=== PATIENT | female | born 1985 | race Caucasian/White ===

== ENCOUNTER 2020-03-22 10:17 | Outpatient (CLI) | payer OTHER, SELFPAY ==
--- NOTE | 2020-04-04 13:50 | WPDPFTINT ---
PFT Interpretation PFT Interpretation: DOS: 03/22/2020 REQUESTING: DESTINY Vuong REASON FOR TESTING: history of heavy smoking PULMONARY FUNCTION TESTS Results are reliable. Spirometry: FEV1 is 114%, FVC 115%, and the FEV/FVC ratio is 78%, all are normal. Normal QRH69-64%. No bronchodilator was given. Lung volumes: TLC 99%, normal. RV is 56%, unremarkable, RV/TLC ratio is 19%, lower than expected. Airway resistance is 141%, increased. Diffusion: DLCO is 63%, mildly decreased. Flow volume loop: Unremarkable. IMPRESSION: Normal spirometry, normal lung volumes with mild increase in airway resistance and mild decrease in diffusion. The decrease in diffusion is the main abnormality. Isolated decrease in DLCO can be seen in early interstitial lung disease, anemia, smoking, collagen vascular disease with pulmonary vascular involvement and chronic thromboembolic disease. Clinical correlation is recommended. Tahira Saez MD
== END 2020-03-22 10:18 | disposition home or self-care (01) ==
LOC: ANHPFT 10:18
PROVIDERS: PCP Physician Assistant; Visit Provider Physician Assistant
DX: Z87.891 Personal history of nicotine dependence (principal)
CPT/HCPCS: 94375; 94726; 94729

== ENCOUNTER 2022-06-01 06:51 | Emergency (ER) | payer OTHER, MEDICAID, SELFPAY ==
[2022-06-01] VITALS (15 sets, daily range): BP systolic 127–140; BP diastolic 72–92; PULSE 57–88; RESP 11–23; TEMP 36.4–37; O2SAT 94–100
--- NOTE | ~2022-06-01 | XR_ITS ---
XR abdomen/kub 1V 06/01/2022 09:15 INDICATION: Constipation TECHNIQUE: KUB COMPARISON: None FINDINGS: Bowel gas pattern is normal. There are cholecystectomy clips. There is no evidence of free air, mass, organomegaly, ascites or obstruction. No abnormal calculi are seen. The bones appear int act. IMPRESSION: 1: No acute abdominal abnormality identified. Reviewed, dictated and finalized at location B. [employer]ERK
[2022-06-01 08:38] LABS: Basophils Percent Auto 0.4 % (0.2-1.2); Eosinophils Absolute Auto 0.2 K/mm3 (0-0.3); Eosinophils Percent Auto 3.1 % (0-4.4); Hematocrit 37.4 % (37.0-47.0); Hemoglobin 12.7 g/dL (12.0-15.0); Immature Granulocyte Absolute 0.02 K/mm3 (0.00-0.031); Immature Granulocyte Percent A 0.3 % (0-0.5); Lymphocytes Absolute Auto 1.92 K/mm3 (0.9-3.2); Lymphocytes Percent Auto 25.2 % (18.3-44.2); Mean Corpuscular Volume 88.4 fl (80-100); Mean Platelet Volume 10.1 fl (7.4-10.4); Monocytes Absolute Auto 0.5 K/mm3 (0.1-0.6); Monocytes Percent Auto 6.4 % (2.6-8.5); Neutrophils Absolute Auto 4.9 K/mm3 (1.3-6.7); Neutrophils Percent Auto 64.6 % (45.5-73.1); Platelet Count Result 215 k/mm3 (150-375); Red Blood Count 4.23 M/mm3 (4.2-5.4); Red Cell Distribution Width 13.3 % (11.5-14.5); White Blood Count 7.6 K/mm3 (4.5-10.0)
[2022-06-01 08:47] LABS: Prothrombin Time 12.4 Seconds (11.1-14.7)
[2022-06-01 08:48] LABS: Partial Thromboplastin Time 30.8 SECONDS (22.3-36.8)
[2022-06-01 09:00] LABS: Alanine Aminotransferase 25 U/L (6-35); Albumin Level 4.3 g/dL (3.5-5.1); Alkaline Phosphatase 79 U/L (38-126); Anion Gap 4 mmol/L (8-16); Aspartate Amino Transferase 23 U/L (14-36); Bilirubin,Total 0.6 mg/dL (0.2-1.3); Blood Urea Nitrogen 10 mg/dL (7-17); Calcium 8.9 mg/dL (8.4-10.2); Carbon Dioxide 30 mmol/L (22-30); Chloride 99 mmol/L (98-107); Estimated CRCL calculation 97 ml/min; Estimated Glomerular Filt Rate > 60; Glucose 94 mg/dL (65-110); Potassium 4.1 mmol/L (3.4-5.0); Sodium 133 mmol/L (137-145)
[2022-06-01] MEDS: ONDANSETRON INJ 4 MG/2 ML VIAL IV PUSH (09:16)
[2022-06-01] MEDS: SODIUM CHLORIDE 0.9% IV 1,000 ML 999 ML IV CONT (09:26)
--- NOTE | 2022-06-01 10:33 | ED.GIBLEED ---
HPI - GI Bleed General Chief complaint: GI Bleed Stated complaint: rectal pain Time Seen by Provider: 06/01/22 08:07 History of Present Illness HPI Narrative: Patient is a 37-year-old female who presents ER with abdominal pain and rectal bleeding. She reports she has not had a bowel movement in 2 weeks. Today she was using the restroom and peed and then when she finished she continued to have liquid come out of her rectum. It turned out it was blood when she wiped herself. She is not bleeding at this time. She does not take any blood thinners. She is having some left-sided abdominal cramping. No history of bowel obstruction. She is passing gas despite only passing small hard firm stools without a normal bowel movement. Related Data Allergies Allergy/AdvReac Type Severity Reaction Status Date / Time codeine Allergy Unknown Verified 07/21/08 12:31 latex Allergy Unknown Unverified 03/21/14 12:39 Review of Systems Review of Systems: All systems reviewed & are unremarkable except as noted in HPI and below Constitutional: Constitutional: Denies chills and Denies fever(s) Gastrointestinal: Gastrointestinal: Reports abdominal pain, Reports constipation, Denies diarrhea, Denies nausea and Denies vomiting Comments: rectal bleeding Genitourinary: Genitourinary: Denies dysuria and Denies flank pain Integumentary/Breasts: Skin/Breast: Denies erythema and Denies rash Neurologic: Denies syncope, Denies focal weakness and Denies numbness PMFSH Past Medical History Medical History (Updated 06/01/22 @ 10:34 by Sebas Cho MD) Anemia Anxiety Seizures Surgical History Surgical History (Updated 07/11/21 @ 10:30 by JAYY Tarango) Delivery by section x 3 History of removal of laparoscopic gastric banding device Hx of laparoscopic gastric banding Family History Family History (Updated 07/11/21 @ 10:29 by JAYY Tarango) Mother Kidney disease Grandparent Bladder cancer maternal Grandmother Exam Narrative: GENERAL: Well-appearing, morbid obese, and in no acute distress. HEAD: Normocephalic, atraumatic. CHEST: Clear to auscultation. No respiratory distress. HEART: Regular rate and rhythm. Normal peripheral pulses. ABDOMEN: Soft, nontender, nondistended. Rectal exam with inflamed external hemorrhoids without active bleeding or thrombosis. There is some residual blood on external inspection. No tenderness. EXTREMITIES: Normal range of motion. No edema. SKIN: Warm, dry, no rash. NEURO: Alert and oriented x3. PSYCH: Normal mood and affect. Course Course Emergency Course: Discussed conservative treatment for external hemorrhoids. Patient verbalized understanding. Discharge home. Vital Signs Vital signs: Vital Signs Temperature 97.6 F 06/01/22 07:01 Pulse Rate 88 06/01/22 07:01 Respiratory Rate 21 H 06/01/22 07:01 Blood Pressure 134/92 H 06/01/22 07:01 Pulse Oximetry 99 06/01/22 07:01 Temperature 98.6 F 06/01/22 08:18 Pulse Rate 68 06/01/22 10:52 Respiratory Rate 16 06/01/22 10:52 Blood Pressure 127/72 06/01/22 10:52 Pulse Oximetry 99 06/01/22 10:52 Oxygen Delivery Room Air 06/01/22 08:18 MDM - GI Bleed Lab Data 06/01/22 08:29 06/01/22 08:29 Labs: Lab Results 06/01/22 06/01/22 06/01/22 Range/Units 08:29 08:29 08:29 WBC 7.6 (4.5-10.0) K/mm3 RBC 4.23 (4.2-5.4) M/mm3 Hgb 12.7 (12.0-15.0) g/dL Hct 37.4 (37.0-47.0) % MCV 88.4 (80-100) fl MCH 30.0 (26-34) pg MCHC 34.0 (32-36) g/dl RDW 13.3 (11.5-14.5) % Plt Count 215 (150-375) k/mm3 MPV 10.1 (7.4-10.4) fl Immature Gran % (Auto) 0.3 (0-0.5) % Neut % (Auto) 64.6 (45.5-73.1) % Lymph % (Auto) 25.2 (18.3-44.2) % [place] % (Auto) 6.4 (2.6-8.5) % Eos % (Auto) 3.1 (0-4.4) % Baso % (Auto) 0.4 (0.2-1.2) % Lymph # (Auto) 1.92 (0.9-3.2) K/mm3 [place] # (Auto) 0.5
== END 2022-06-01 10:54 | disposition home or self-care (01) ==
PROVIDERS: Emergency Provider Emergency Medicine; PCP Internal Medicine
DX: K64.4 Residual hemorrhoidal skin tags (principal); K59.00 Constipation, unspecified; Z86.2 Personal history of diseases of the blood and blood-forming organs and certain disorders involving the immune mechanism; Z98.84 Bariatric surgery status
CPT/HCPCS: 36415; 74018; 80053; 85025; 85610; 85730; 86850; 86900; 86901; 96361; 96374; 99284; J2405; J7030